=== PATIENT | male | born 1955 | race Caucasian/White ===

== ENCOUNTER 2023-03-16 08:11 | Inpatient (IN) | payer BC ==
[2023-03-16] VITALS (633 sets, daily range): BP systolic 121–149; BP diastolic 76–92; PULSE 38–80; TEMP 97.7–98.2; O2SAT 90–100
[~2023-03-16] VITALS: Ht 195.6 cm; Wt 112.1 kg
[~2023-03-16 08:11] MED LIST: AMBIEN 10MG10 MG PO; ASPIRIN E.C. 8181 MG PO; CORGARD40 MG PO; DECADRON 4MG TAB4 MG PO; KLONOPIN 1MG1 MG PO; LIPITOR 10MG10 MG PO; PREDNISONE20 MG PO; PRILOSEC 20MG20 MG PO; PROAIR HFA0.09 MG/AC IH; ZITHROMAX Z PA250 MG PO; ZOLOFT 100MG100 MG PO
[2023-03-16] MEDS ORDERED: VANCOCIN H125 MG/CAP PO (09:02)
[2023-03-16] MEDS ORDERED: TRELEGY ELLIPT1 EACH IH (09:03)
--- NOTE | 2023-03-16 10:34 | NUR ---
pt to ct per ambulation. Pt placed in supine position on ct cart. Monitors applied. O2 on at 2 l/nc.
[2023-03-16] MEDS ORDERED: fentaNYL 50 MCG/ML 2 ML VIAL IV SCH (10:50)
--- NOTE | 2023-03-16 10:55 | NUR ---
Pt denies any pain during procedure. resp even and easy.
--- NOTE | 2023-03-16 11:01 | NUR ---
Pt parul's down and is unresponsive and diaphoretic. Nurse stimulates pt. Checks pulse. Pts head lifted up and pt tells nurse he forgot where he was at. Pt again bradys down. Pt removed from CT machine and needle removed. Pt flipped over onto his back. Nurse talking with pt. Pt sluggish but responds. Heart rate approximately 38. CPR patches placed on pt. Dr Ocampo at bedside. Pt talking with nurse. Pts monitor shows heart rate in the upper 50's
--- NOTE | 2023-03-16 11:05 | NUR ---
Pt talks with nurse heart rate increasing. Pt asks if the biopsy was completed. Informed pt the biopsy was not completed.
[2023-03-16] MEDS ORDERED: Fluticasone/Umeclidinium/Vilanterol **** subs to Budesonide + Umeclid/Vilant IH SCH (11:43)
[2023-03-16] MEDS ORDERED: Vancomycin 125 MG CAP PO SCH (11:45)
--- NOTE | 2023-03-16 11:45 | NUR ---
Dr Lee into talk with pt regarding procedure. Pt verbalized understanding. Pt stated he would like the med offered by Dr Lee for his anxiety.
--- NOTE | 2023-03-16 12:45 | NUR ---
Pt arrived from CT as "post code" to room ICU 2 attached to zoll. HR in the 50s. Pt is oriented x4. at bedside. Pt c/o sight headache. Pt on 3L NC with sats at 100%. Pt attached to critical care monitors. Blood pressure is stable. Pt oriented to room, instructed to call prior to getting out of bed. Pt verbalized understanding. Pt is NPO at this time. Skin is intact. Call light within rech. Will continue with POC.
[2023-03-16 14:16] LABS: BASO % 0.3 % (0.0-2.0); EOS # 0.4 K/mm3 (0.0-0.7); EOS % 5.6 % (0.0-4.0); GRAN # 4.4 K/mm3 (1.4-6.5); GRAN % 66.1 % (42.2-75.2); HEMATOCRIT 40.9 % (42.0-52.0); HEMOGLOBIN 13.3 g/dl (13.5-18.0); LYMPH # 1.1 K/mm3 (1.2-3.4); LYMPH % 16.1 % (20.0-51.0); MEAN CELL VOLUME 89 fl (80.0-100.0); MEAN CORPUSCULAR HEMOGLOBIN 29 pg (27-31); MEAN CORPUSCULAR HGB CONC 33 g/dl (33.0-37.0); MEAN PLATELET VOLUME 10.9 fl (7.4-10.4); MONO # 0.8 K/mm3 (0.1-0.6); MONO % 11.4 % (1.7-9.3); PLATELET COUNT 211 K/mm3 (130-400); RED BLOOD COUNT 4.62 M/mm3 (4.20-5.60); REDCELL DISTRIBUTION WIDTH-CV 13.6 % (11.5-14.5)
[2023-03-16 14:26] LABS: ALANINE AMINOTRANSFERASE 27 U/L (0-55); ALBUMIN 3.8 gm/dL (3.4-4.8); ALKALINE PHOSPHATASE 65 U/L (40-150); ANION GAP 9 mmol/L (7-16); AST,SGOT 27 U/L (5-34); BILIRUBIN,TOTAL 0.6 mg/dL (0.2-1.2); BLOOD UREA NITROGEN 10 mg/dL (8-26); CALCIUM 9.3 mg/dL (8.4-10.2); CARBON DIOXIDE 26 mmol/L (23-31); CHLORIDE 107 mmol/L (98-107); CREATININE, serum 1.05 mg/dL (0.72-1.25); GLUCOSE 103 mg/dL (70-99); MAGNESIUM 1.8 mg/dL (1.6-2.6); POTASSIUM 4.3 mmol/L (3.5-4.5); SODIUM 142 mmol/L (136-145); TOTAL PROTEIN 6.8 gm/dL (6.2-8.1)
[2023-03-16 14:35] LABS: TROPONIN-I < 0.010 ng/mL (0.00-0.033)
[2023-03-16] MEDS ORDERED: Budesonide Neb Susp 0.5 MG/2 ML AMP IH SCH (19:00)
--- NOTE | 2023-03-16 19:30 | NUR ---
REPORT RECEIVED FROM LEEUTERIO MONGE. PATIENT RESTING IN BED EATING DINNER AT THIS TIME. NO SIGNS OF ACUTE DISTRESS NOTED.
[2023-03-16] MEDS ORDERED: Zolpidem 10 MG TAB PO SCH (21:00)
[2023-03-16] MEDS ORDERED: Atorvastatin 10 MG TAB PO SCH (21:15)
[2023-03-17] VITALS (685 sets, daily range): BP systolic 123–130; BP diastolic 83–90; PULSE 65–74; TEMP 97.6–97.7; O2SAT 91–100
[2023-03-17 05:27] LABS: CALCIUM 9.1 mg/dL (8.4-10.2); CREATININE, serum 0.86 mg/dL (0.72-1.25); MAGNESIUM 1.9 mg/dL (1.6-2.6); POTASSIUM 3.9 mmol/L (3.5-4.5)
[2023-03-17] MEDS ORDERED: Omeprazole 20 MG **** subs to Pantoprazole 40 MG PO SCH (07:00)
--- NOTE | 2023-03-17 07:38 | NUR ---
Report received from ELEUTERIO Michel; patient currently resting in bed with eyes closed. Patient has no meds or fluids running through his right upper arm PICC; patient has a peripheral INT. Patient is on room air; no other lines or tubes are in place at this time. Patient's vital signs are within normal limits this morning.
[2023-03-17] MEDS ORDERED: PROBIOTIC DIGE1 EACH PO (08:26)
[2023-03-17] MEDS ORDERED: Umeclidinium/Vilanterol 62.5-25 MCG INHALATION/INHALER IH SCH (09:00)
[2023-03-17] MEDS ORDERED: Sertraline 100 MG TAB PO SCH (09:00)
--- NOTE | 2023-03-17 10:17 | NUR ---
fruit or nut farmworker met with pt and , Cristy [phone] at bedside to discuss discharge planning. Pt reports he lives with his in [place]. He sees Dr. Benson and obtains medications from [facility] with no difficulties. He is independent with ADLS and uses no DME. He has a DPOA listing his at home. Pt intends to return home at discharge. Discharge Plan: Home
[2023-03-17] MEDS ORDERED: CEPHALEXIN500 M1 PO (13:54)
--- NOTE | 2023-03-17 14:13 | NUR ---
D: Initial visit: Cutter V Groove stopped by the room on rounds. Pt was resting and content with by his side. A: Pt has no needs right now. Had a good conversation and both appreciated the visit. P: Cutter V Groove informed pt that if he needed anything to let his nurse know. Cutter V Groove will follow up as needed.
--- NOTE | 2023-03-17 16:29 | NUR ---
Patient taken out ELEUTERIO Harris after discharge instructions were gone over by this nurse. AIVS RN, Christiana, took patient's right upper arm PICC and peripheral INT was removed by ELEUTERIO Harris before discharging patient. Patient was in stable condition and vital signs were within normal limits.
[2023-03-17] MEDS ORDERED: Atorvastatin 10 MG TAB PO SCH (21:00)
== END 2023-03-17 14:22 | disposition home or self-care (01) | DRG 262 ==
LOC: COL.RAD 08:11 → ICU 11:32
PROVIDERS: ADMIT Internal Medicine
PROC: 0JH632Z Insertion of Monitoring Device into Chest Subcutaneous Tissue and Fascia, Percutaneous Approach (ICD-10-PCS; principal; 2023-03-17)
PROC: 02H633Z Insertion of Infusion Device into Right Atrium, Percutaneous Approach (ICD-10-PCS; 2023-03-17)
DX: R00.1 Bradycardia, unspecified (principal); J98.4 Other disorders of lung; F41.9 Anxiety disorder, unspecified; F32.A Depression, unspecified; I08.1 Rheumatic disorders of both mitral and tricuspid valves; K52.9 Noninfective gastroenteritis and colitis, unspecified; K21.9 Gastro-esophageal reflux disease without esophagitis; I10 Essential (primary) hypertension; E78.5 Hyperlipidemia, unspecified; G47.00 Insomnia, unspecified
CPT/HCPCS: C1751; C1764; J3010